=== PATIENT | female | born 1945 | race Caucasian/White ===

== ENCOUNTER 2016-12-28 08:51 | Emergency (ER) | payer MEDICARE ==
[2016-12-28] MEDS ORDERED: HYDROcod/ACETAM 5/325 MG TABLET PO STA (09:10)
[2016-12-28] MEDS ORDERED: CLINDAMYCIN 150 MG CAPSULE PO STA (09:10)
[2016-12-28] MEDS ORDERED: HYDROcod/ACETAM 5/325 MG TABLET ONE (09:14)
[2016-12-28] MEDS ORDERED: CLINDAMYCIN 150 MG CAPSULE PO ONE (09:14)
== END 2016-12-28 09:20 | disposition home or self-care (01) ==
DX: K04.7 Periapical abscess without sinus (principal); K02.9 Dental caries, unspecified; L03.211 Cellulitis of face
CPT/HCPCS: 99283; A9270

== ENCOUNTER 2021-07-29 23:43 | Emergency (ER) | payer MEDICARE ==
--- NOTE | 2021-07-30 00:51 | ED Physician Documentation ---
History of Present Illness - Stated complaint Stated Complaint: L LEG INFECTION - Chief complaint Chief Complaint: Wound - History obtained from History obtained from: Patient - History of Present Illness Timing: How many weeks ago (approximately 1 week ago) Pain level max: 6 (with palpation) Pain level now: 2 (at rest) Improved by: rest Worsened by: palpation - Additonal information Additional information: c/o one week of gradual onset left buttock pain and swelling that has steadily progressed in affected area and intensity of pain. denies h/o similar symptoms. denies fever Review of Systems Constitutional: denies: Fever, Chills, Sweats GI: denies: Abdominal Pain Skin: reports: Lesions (left perianal painful swelling) PD PAST MEDICAL HISTORY - Past Medical History Past Medical History: No Cardiovascular: None Respiratory: None : None Psych: None Musculoskeletal: None - Past Surgical History Past Surgical History: No - Present Medications Home Medications: Ambulatory Orders Medication Instructions Recorded Confirmed Hydrocodone/Acetaminophen [[place] 1 each PO Q6H PRN #20 tablet 12/28/16 5-325 Tablet] clindamycin HCL [Cleocin HCl] 300 mg PO TID #21 capsule 12/28/16 Clindamycin [Cleocin] 450 mg PO TID 7 Days #63 cap 07/30/21 oxyCODONE [Roxicodone] 5 mg PO Q6H PRN #14 tablet 07/30/21 - Allergies Allergies/Adverse Reactions: Allergies Allergy/AdvReac Type Severity Reaction Status Date / Time No Known Drug Allergies Allergy Verified 12/28/16 08:57 - Social History Does the pt smoke?: No Smoking Status: Never smoker Does the pt drink ETOH?: No Does the pt have substance abuse?: No - Immunizations Immunizations are current?: Yes - POLST Patient has POLST: No PD ED PE NORMAL - Vitals Vital signs reviewed: Yes - General General: Alert and oriented X 3, No acute distress, Well developed/nourished - Abdomen Abdomen: Soft, Non tender PD ED PE EXPANDED - Female Female : Topographical Drafter present Female visual: 1 - abscess (fluctuant, exquisitely tender, large abscess with surrounding cellulitis) Results - Vitals Vitals: Oxygen O2 Source Room air - Labs Labs: Microbiology 07/30/21 05:05 Wound Culture - Preliminary Abscess Laboratory Tests 07/30/21 07/30/21 07/30/21 01:36 01:36 02:05 WBC 20.5 H RBC 2.74 L Hgb 9.1 L Hct 25.8 L MCV 94.2 MCH 33.2 H MCHC 35.3 RDW 16.1 H Plt Count 98 L MPV 10.3 Neut # (Auto) Not Reportable Lymph # (Auto) Not Reportable [place] # (Auto) Not Reportable Eos # (Auto) Not Reportable Baso # (Auto) Not Reportable Absolute Nucleated RBC Not Reportable Total Counted 100 Band Neuts % (Manual) 0 Abnorm Lymph % (Manual) 0 Nucleated RBC % Not Reportable Neutrophils # (Manual) 14.4 H Lymphocytes # (Manual) 4.1 H Monocytes # (Manual) 2.1 H Eosinophils # (Manual) 0.0 Basophils # (Manual) 0.0 Differential Comment MANUAL DIFFERENTIAL Platelet Estimate DECREASED (<130,000) RBC Morph Micro Appear NORMAL APPEARANCE Sodium 128 L Potassium 4.3 Chloride 94 L Carbon Dioxide 24 Anion Gap 10.0 BUN 14 Creatinine 0.7 Estimated GFR (MDRD) 82 L Glucose 293 H Lactic Acid 1.3 Calcium 8.8 - Rads (name of study) CT pelvis with IV contrast Radiology: Prelim report reviewed, See rad report PD MEDICAL DECISION MAKING - ED course Complexity details: reviewed results, re-evaluated patient, considered differential, d/w patient ED course: large left perianal abscess evident on exam, CT performed to better define parameters including depth of the abscess. Surgery nuclear monitoring technician consulted due to the size and challenging location of the lesion. Dr. Whalen graciously came to ED and performed I+D. Per our subsequent discussion and his recommendation, I prescribed an antibiotic (clindamycin) as well as pain medication. I am prescribing a short course of short-acting opioid pain medication for this patient. I have reviewed the patients [employer] and no concerning findings were noted. I have discussed that the opioids are for short term therapy only, and will not be refilled from the ED. Departure - Departure Disposition: 01 Home, Self Care Clinical Impression: Perianal abscess Condition: Good Instructions: ED Abscess IandD Follow-Up: Maddison Pacheco MD [Provider Admit Priv/Credential] - (Follow up in 7-10 days for recheck of the abscess. ) Prescriptions: Clindamycin [Cleocin] 450 mg PO TID 7 Days #63 cap oxyCODONE [Roxicodone] 5 mg PO Q6H PRN #14 tablet PRN Reason: Pain Comments: Prescriptions for antibiotic (clindamycin) and opioid pain medication (o xycodone) have been electronically submitted to [facility] pharmacy in [place]. I am prescribing a short course of narcotic pain medication for you. These are potentially dangerous and addictive medications that should be used carefully. These medications may constipate you. Take an gnio-kxc-rrkkwvg stool softener (docusate) twice daily with plenty of water while taking these medications. If you go 24 hours without a bowel movement, take bffw-gry-hqwrfus miralax, per package instructions. Do not drink or drive while taking these medications. If you received narcotic or sedating medications while in the emergency department, do not drive for 24 hours. Store this medication in a safe, secure place and out of reach of children. It is a violation of federal law to give or sell this medication to another person or to use in a manner other than prescribed. The ED will not refill narcotic prescriptions, including prescriptions lost or stolen. To dispose of unwanted medications: 1. [facility] [address] in [place] has a medication drop box. They accept prescription medications (in pill form) Wednesday through Wednesday 9:00 a.m. to 5:00 p.m. 2. [facility] [employer] accepts prescription medications (in pill form only) for disposal year round. Call for more information. 3. Contact the [facility] for the next [facility] sponsored prescription drug collection event. , [phone], or [phone]; Discharge Date/Time: 07/30/21 06:36
[2021-07-30] MEDS ORDERED: IOVERSOL 320 100 ML VIAL IVP ONE (01:42)
[2021-07-30 01:45] LABS: BASOPHILS % (AUTO) 0.2 %; HCT - HEMATOCRIT 25.8 % (37.0-47.0); HGB - HEMOGLOBIN 9.1 g/dL (12.0-16.0); LYMPHOCYTES % (AUTO) 13.3 %; MEAN CORPUSCULAR HEMOGLOBIN 33.2 pg (27.0-31.0); MEAN CORPUSCULAR HGB CONC 35.3 g/dL (32.0-36.0); MEAN CORPUSCULAR VOLUME 94.2 fL (81.0-99.0); MEAN PLATELET VOLUME 10.3 fL (7.9-10.8); MONOCYTES % (AUTO) 5.2 %; NEUTROPHILS % (AUTO) 80.6 %; PLT - PLATELET COUNT 98 10^3/uL (130-450); RED BLOOD COUNT 2.74 10^6/uL (4.20-5.40); RED CELL DISTRIBUTION WIDTH 16.1 % (12.0-15.0); WHITE BLOOD COUNT 20.5 x10^3/uL (4.8-10.8)
[2021-07-30 01:50] LABS: ABNORMAL LYMPHS % (MANUAL) 0 %; BAND NEUTROPHILS % (MANUAL) 0 %
[2021-07-30 02:01] LABS: CALCIUM 8.8 mg/dL (8.5-10.3); CREATININE 0.7 mg/dL (0.4-1.0); POTASSIUM 4.3 mmol/L (3.5-5.0)
[2021-07-30 02:15] LABS: DIFFERENTIAL COMMENT MANUAL DIFFERENTIAL; LYMPHOCYTES # (MANUAL) 4.1 10^3/uL (1.5-3.5); LYMPHOCYTES % (MANUAL) 20 %; MONOCYTES # (MANUAL) 2.1 10^3/uL (0.0-1.0); NEUTROPHILS # (MANUAL) 14.4 10^3/uL (1.5-6.6); PLATELET ESTIMATE, MANUAL DECREASED (<130,000) (NORMAL); RBC MORPHOLOGY (MULTIPLE) NORMAL APPEARANCE (NORMAL)
[2021-07-30] MEDS: IOVERSOL 320 100 ML VIAL IVP ONE (02:34)
[2021-07-30] MEDS: SODIUM CHLORIDE 0.9% 1,000 ML IV STA (04:23)
[2021-07-30] MEDS ORDERED: LIDOCAINE 1% 2 ML VIAL ONE ×2 (05:05→05:06)
--- NOTE | 2021-07-30 05:15 | CONSULTATION NOTE ---
Referring Provider Name of Referring Provider:: Mauricio Rivas Chief Complaint - Chief Complaint Chief Complaint: L gluteal/perianal pain History of Present Illness - History of Present Illness HPI Comment/Other: Pt is a 75 yo F with hx pre-DM (not on any medications) who presents with several days of L gluteal/perianal pain. Pain started several days prior to admission, however pt noted pain continued to worsen and she had some swelling in L gluteal region prompting presentation to ED. Comfortable at rest but severe pain when touching skin/swollen area in L gluteal region. Denies pain with BMs. Having regular soft BMs, no constipation, no bleeding with BMs. Denies fevers. Tolerating regular diet, no abdominal pain. Has had colonoscopy many yrs ago, believes it was normal. Has never had similar issue in the past. Not on any blood thinners. No hx abnormal bleeding. In ED pt is afebrile, normotensive, not tachycardic. Labs notable for WBC 20, Plts 98, Hgb 9, Na 29, Glucose ~300. CT with large L gluteal/perianal abscess with no tracking gas to suggest a necrotizing soft tissue infection. History - Past Medical History Cardiovascular: reports: None Respiratory: reports: None Neuro: reports: None Endocrine/Autoimmune: reports: Other (pre-DM per pt) GI: reports: None : reports: None HEENT: reports: None Psych: reports: None Musculoskeletal: reports: None Derm: reports: None MRSA Hx?: No - Family & Social History Family History: Sister: Cancer (sister of breast CA in her 70s) - Substance History Use: Uses substance without health or social issues: NONE - POLST Patient has POLST: No Meds/Allgy - Home Medications Home Medications: Ambulatory Orders Medication Instructions Recorded Confirmed Hydrocodone/Acetaminophen [[place] 1 each PO Q6H PRN #20 tablet 12/28/16 5-325 Tablet] clindamycin HCL [Cleocin HCl] 300 mg PO TID #21 capsule 12/28/16 - Allergies Allergies/Adverse Reactions: Allergies Allergy/AdvReac Type Severity Reaction Status Date / Time No Known Drug Allergies Allergy Verified 12/28/16 08:57 Review of Systems - Constitutional Constitutional: denies: Fever, Chills - Eyes Eyes: denies: Pain - Ears, Nose & Throat Ears, Nose & Throat: denies: Ear pain - Cardiovascular Cariovascular: denies: Chest pain, Edema - Respiratory Respiratory: denies: Cough, Wheezing - Gastrointestinal Gastrointestinal: reports: Other (perianal/ L gluteal pain). denies: Abdominal pain, Abdominal distention, Constipation, Rectal bleeding - Genitourinary Genitourinary: denies: Dysuria - Musculoskeletal Musculoskeletal: denies: Muscle aches - Integumentary Integumentary: denies: Rash - Psychiatric Psychiatric: denies: Depression - Endocrine Endocrine: denies: Polyuria - Hematologic/Lymphatic Hematologic/Lymphatic: denies: Anemia, Bruising, Petechiae Exam - Vital Signs Reviewed Vital Signs: Yes Vital Signs: Vital Signs x48h Temp Pulse Resp BP Pulse Ox 07/30/21 03:18 82 16 131/64 H 95 07/30/21 02:02 16 07/30/21 00:09 36.7 C 95 20 129/67 97 07/30/21 00:01 36.7 C 97 20 129/67 97 - Physical Exam General Appearance: positive: No acute distress Eyes Bilateral: positive: EOMI ENT: positive: Other (atraumatic, normocephalic) Respiratory: positive: No respiratory distress, Other (normal WOB on RA) Cardiovascular: positive: Regular rate & rhythm Abdomen: positive: Non-tender, No distention, Other (no scars). negative: Tenderness, Mass Rectal: positive: Non-tender, Other (soft stool in vault; no internal fluctuance or tenderness). negative: Mass Skin: positive: No rash, Warm, Dry, Other (large L gluteal area of fluctuance extending from the anal verge laterally and distally with overlying erythema and some skin breakdown, very TTP) Extremities: positive: No pedal edema Neurologic/Psychiatric: positive: Oriented x3, Mood/affect nml Conclusion and Plan - Lab Results Laboratory Results 07/30/21 02:05: Lactic Acid 1.3 07/30/21 01:36: Sodium 128 L, Potassium 4.3, Chloride 94 L, Carbon Dioxide 24, Anion Gap 10.0, BUN 14, Creatinine 0.7, Estimated GFR (MDRD) 82 L, Glucose 293 H, Calcium 8.8 07/30/21 01:36: WBC 20.5 H, RBC 2.74 L, Hgb 9.1 L, Hct 25.8 L, MCV 94.2, MCH 33.2 H, MCHC 35.3, RDW 16.1 H, Plt Count 98 L, MPV 10.3, Neut # (Auto) Not Reportable, Lymph # (Auto) Not Reportable, [place] # (Auto) Not Reportable, Eos # (Auto) Not Reportable, Baso # (Auto) Not Reportable, Absolute Nucleated RBC Not Reportable, Total Counted 100, Band Neuts % (Manual) 0, Abnorm Lymph % (Manual) 0, Nucleated RBC % Not Reportable, Neutrophils # (Manual) 14.4 H, Lymphocytes # (Manual) 4.1 H, Monocytes # (Manual) 2.1 H, Eosinophils # (Manual) 0.0, Basophils # (Manual) 0.0, Differential Comment MANUAL DIFFERENTIAL, Platelet Estimate DECREASED (<130,000), RBC Morph Micro Appear NORMAL APPEARANCE - Diagnostic Imaging Results Diagnostic Imaging Results: positive: Prelim report reviewed (large L gluteal/perianal abscess 5.7 x 3.5 x 5.2 cm without gas tracking) - Plan Plan: Pt is a 75 yo F with hx pre-DM who presents with large perianal/L gluteal abscess. Vitals stable, marked erythema L gluteal region near anus with fluctuance. Normal JASON. Labs with WBC 20, Plts 98, Hgb 9.1, Na 129, Glucose 293. CT confirms the diagnosis. - Discussed options including bedside drainage vs OR drainage. Pt would like to try bedside drainage. - Risks of incision and drainage including but not limited to bleeding, pain, need for repeat procedures, re-accumulation/recurrence of infection were discussed with the patient who agrees to proceed. Informed consent signed and in chart. - given cellulitis, would recommend 5-7 day course PO abx - rest per ED Jose Juan Whalen MD General Surgery
--- NOTE | 2021-07-30 06:13 | PROCEDURE REPORT ---
Hospitalist Procedure Note - Procedure Note Procedure Note: PROCEDURE NOTE Procedure: incision and drainage of L gluteal/perianal abscess Performed by: Jose Juan Whalen MD Consent: risks (including but not limited to bleeding, pain, recurrent infection) benefits and alternatives (drainage in OR) were discussed with the patient who wished to proceed. Informed consent was obtained; consent form signed by patient Consent given by: patient Time Out was performed to verify patient identity, site and procedure confirmed Type: abscess Location: L gluteal/perianal region Anesthesia: local infiltration with 8 mL of 1% plain lidocaine Scalpel size: 11 blade Incision type: ellipse Complexity: simple Drainage: purulent, ~10-15 mL Wound treatment: packed with 1/2 inch plain gauze strip (iodiform not available) Patient tolerance: well with no immediate complication Plan: d/c on abx for cellulitis, f/u in gen surg clinic in 2 weeks Jose Juan Whalen MD General Surgery
[2021-07-30] MEDS: CLINDAMYCIN 150 MG CAPSULE PO STA (06:23)
[2021-07-30] MEDS: oxyCODONE 5 MG TABLET PO STA (06:24)
[2021-07-30 06:30] VITALS: BP 121/63
--- NOTE | 2021-07-30 07:54 | CT Report ---
PROCEDURE: PELVIS W INDICATIONS: left perianal abscess CONTRAST: IV CONTRAST: Optiray 320 ml: 100 PO CONTRAST: *NO PO CONTRAST TECHNIQUE: After the administration of intravenous contrast, 5 mm thick sections acquired from the iliac crests to the symphysis. 5 mm thick coronal and sagittal reformats were acquired. For radiation dose reduc tion, the following was used: automated exposure control, adjustment of mA and/or kV according to pa tient size. COMPARISON: None FINDINGS: Image quality: Excellent. Peritoneum and bowel: Contrast enhanced bowel loops demonstrate normal wall thickness and caliber. No free fluid or air. Genitourinary: Bladder wall thickness is normal. Nodes and vessels: No iliac, pelvic, or inguinal adenopathy. Iliac vessels demonstrate normal size and enhancement. Bones: No suspicious bony lesions. Miscellaneous: No inguinal hernias. Left perianal abscess the subcutaneous fat, superficial to the anus, measuring 5.7 x 3.5 x 5.2 cm, with gas and fluid present within it. Associated cellulitic saleh e. 2.4 cm right adnexal cystic lesion. IMPRESSION: 1. Left perianal abscess in the subcutaneous fat measuring 5.7 x 3.5 x 5.2 cm. 2. Cystic right adnexal lesion measuring 2.4 cm. Differential diagnosis includes benign and malignant etiologies. Comment: Recommend 12 month follow-up imaging, either CT or ultrasound, to follow the cystic right ad nexal lesion. Findings are concordant with preliminary interpretation provided by [facility]. Reviewed by: Andre Kat MD on 07/30/2021 7:52 AM PST Approved by: Andre Kat MD on 07/30/2021 7:52 AM PST Station ID: [id number]
== END 2021-07-30 06:36 | disposition home or self-care (01) ==
LOC: ED 23:43
DX: K61.0 Anal abscess (principal); L03.317 Cellulitis of buttock
CPT/HCPCS: 36415; 46050; 72193; 80048; 83605; 85025; 87070; 87205; 99283; 99284; A9270; Q9967